=== PATIENT | male | born 1995 | race Two or more races ===

== ENCOUNTER 2022-05-20 23:24 | Emergency (ER) | payer MEDICAID, SELFPAY ==
[2022-05-20 23:28] VITALS: BP 134/68; PULSE 76; RESP 16; TEMP 36.7; O2SAT 99; BMI 25.7
== END 2022-05-21 04:03 | disposition left against medical advice (07) ==
PROVIDERS: Emergency Provider Emergency Medicine
DX: S61.411A Laceration without foreign body of right hand, initial encounter (principal); W25.XXXA Contact with sharp glass, initial encounter; Y93.9 Activity, unspecified; Y92.810 Car as the place of occurrence of the external cause; Y99.9 Unspecified external cause status
CPT/HCPCS: 99281

== ENCOUNTER 2025-04-30 22:09 | Emergency (ER) | payer SELFPAY ==
[2025-04-30 21:33] VITALS: BP 138/69; PULSE 71; RESP 18; TEMP 37; O2SAT 99; BMI 27.2
[2025-04-30 23:41] VITALS: BP 136/86; PULSE 61; RESP 16; TEMP 36.7; O2SAT 100
[2025-05-01] MEDS: Diphth,Pertus(ACell),Tet Adult 0.5 ML SYRINGE IM (00:21)
[2025-05-01] MEDS: Lidocaine HCl 1 % 20 ML VIAL 10 ML INFILTRATI (00:23)
--- NOTE | 2025-05-01 00:29 | PC.NURSE ---
pt medicated per oct, tolerated whole well with water, awaiting ed doc
--- NOTE | 2025-05-01 01:23 | ED_ITS ---
HPI - Skin/Abscess/Foreign Bdy General Chief complaint: Skin/Abscess/Foreign Body Stated complaint: Finger lac at work Time Seen by Provider: 04/30/25 23:57 Source: patient Mode of arrival: ambulatory Limitations: no limitations History of Present Illness ED Provider: Dr. Eva Richter HPI narrative: Patient comes to the emergency room complaining of a left middle finger laceration. Patient states that he was at work, using a box sealing machine catcher then accidentally lacerated the palmar aspect of the left middle finger. Patient states that he does not have any other injuries, patient states that he does not believe he is up-to-date with his Tdap is willing to get a booster today. Related Data Allergies Allergy/AdvReac Type Severity Reaction Status Date / Time No Known Allergies Allergy Unverified 04/30/25 21:35 Review of Systems Review of Systems: Constitutional : No Weight loss, No Fever, No Chills, No Night Sweats, No Fatigue, No Malaise ENT/Mouth : No Hearing loss, No Ear Pain, No Nasal Congestion, No Sinus Pain, No Hoarseness, No sore throat, No Rhinorrhea, No Swallowing Difficulty Eyes: No Eye Pain, No Swelling, No Redness, No Foreign Body, No Discharge, No Vision Changes Cardiovascular : No Chest Pain, No SOB, No Dyspnea on Exertion, No Orthopnea, No Edema, No Palpitations Respiratory : No Cough, No Sputum, No Wheezing, No Smoke Exposure, No Dyspnea Gastrointestinal : No Nausea, No Vomiting, No Diarrhea, No Constipation, No abdominal Pain, No Hematochezia, No Melena Genitourinary : no irregular bleeding, No Dysuria, No Urinary Frequency, No Hematuria, No Urinary Incontinence, No Urgency, No Flank Pain, No Urinary Flow Changes, No Hesitancy Musculoskeletal : No joint pain, No Myalgias, No Joint Swelling Skin : Complaining of a laceration to the palmar aspect of the left middle finger Neuro : No Weakness, No Numbness, No Paresthesias, No Loss of Consciousness, No Dizziness, No Headache Psych : No Anxiety/Panic, No Depression, No SI/HI/AH/VH, No Social Issues, Heme/Lymph: No Bruising, No Bleeding,No Lymphadenopathy Endocrine : No Polyuria, No Polydipsia, No Temperature Intolerance PMFSH Social History Social History Smoked in Last 30 Days: No Use of substances other than those prescribed or required for medical reasons: No Advance Directives: No Advance Directives Information Provided: No Physical Exam Exam: Exam: Appearance: Alert. Oriented X3. No acute distress. Eyes: Pupils equal, round and reactive to light. ENT: Pharynx normal. Neck: Normal inspection. Neck supple. No lymph nodes noted. No crepitus CVS: Normal heart rate and rhythm. Pulses normal. Normal S1 and S2 Respiratory: No respiratory distress. Breath sounds normal. No Wheezing. No rales Abdomen: Soft and nontender. No rigidity. No distention. Skin: Skin warm and dry. Normal skin color. Normal skin turgor. Extremities: No lower extremity edema. No Lacerations. No Rash in the palmar aspect of the left middle finger after the D IP, there is 3 cm laceration. Exam done under a bloodless field, no tendon involvement, patient able to flex and extend all fingers of the left hand. Neuro: Oriented X 3. No motor deficit. No sensory deficit. Moving all extremities. No slurred speech. CN 2 through 12 grossly intact Psych: calm, cooperative, normal affect Vital Signs: Vital Signs: Last Vital Signs Temp 98.0 F 04/30/25 23:41 Pulse 61 04/30/25 23:41 Resp 16 04/30/25 23:41 BP 136/86 04/30/25 23:41 Pulse Ox 100 04/30/25 23:41 O2 Del Method Room Air 04/30/25 23:41 BMI result Body Mass Index 27.2 Medications Administered Discontinued Medications Generic Name Dose Route Start Last Admin Trade Name Freq PRN Reason Stop Dose Admin Acetaminophen 975 mg 05/01/25 00:03 05/01/25 00:21 Acetaminophen 325 Mg Tablet PO 05/01/25 00:04 975 mg ONCE ONE Administration Diphtheria/Tetanus/Acell Pertussis 0.5 ml 05/01/25 00:03 05/01/25 00:21 Diphth,Pertus(Acell),Tet Adult 0.5 Ml Syringe IM 05/01/25 00:04 0.5 ml .ONCE ONE Administration Lidocaine HCl 10 ml 05/01/25 00:03 05/01/25 00:23 Lidocaine Hcl 1 % 20 Ml Vial INFILTRATI 05/01/25 00:04 10 ml ONCE ONE Administration Medical Decision Making Medical Decision Making MDM Narrative: Patient needed 10 stitches, tolerated well the procedure Procedures Laceration Laceration 1: Site: hand Side (If applicable): left Size (cm): 3 Description: linear Depth: simple, single layer Local Anesthetic: lidocaine 1% Amount of anesthesia used (mL): 3 Pre-repair: wound explored Skin layer closed with: nylon Size (cm): 4-0 Number of sutures: 10 Technique: simple, interrupted Discharge Plan Discharge Clinical Impression: Finger laceration Patient Disposition: Home, Self-Care Instructions: Laceration (ED) Additional Instructions: Your stitches need to be removed in 7-10 days. If you see any signs of infec tion such as pus drainage, redness, fever chills, please return immediately to the emergency room. Please follow-up with your primary care physician tomorrow. If you have any worsening or new symptoms, please return to the emergency room or call 911. Stand Alone Forms: Work/School Release Print Language: Syriac
[2025-05-01 01:36] VITALS: BP 142/81; PULSE 65; RESP 17; TEMP 36.7; O2SAT 98
== END 2025-05-01 01:37 | disposition home or self-care (01) ==
PROVIDERS: Emergency Provider Emergency Medicine
DX: S61.213A Laceration without foreign body of left middle finger without damage to nail, initial encounter (principal); W26.0XXA Contact with knife, initial encounter; Y93.9 Activity, unspecified; Y92.9 Unspecified place or not applicable; Y99.0 Civilian activity done for income or pay; Z23 Encounter for immunization
CPT/HCPCS: 12002; 90471; 90715; 99284; J2003